=== PATIENT | female | born 1970 | race Native Hawaiian/Other Pacific Islander ===

== ENCOUNTER 2017-04-11 10:12 | Outpatient (CLI) | payer OTHER | END 2017-04-11 11:15 | disposition home or self-care (01) | LOC: MAMMO 10:12 | DX: Z12.31 Encounter for screening mammogram for malignant neoplasm of breast (principal) ==

== ENCOUNTER 2017-04-21 09:30 | Outpatient (CLI) | payer OTHER | END 2017-04-21 11:00 | disposition home or self-care (01) | LOC: US 09:30 | DX: R92.2 Inconclusive mammogram (principal) ==

== ENCOUNTER 2018-04-03 14:14 | Outpatient (CLI) | payer BC | END 2018-04-03 22:34 | disposition home or self-care (01) | LOC: RAD 14:14 | DX: M25.531 Pain in right wrist (principal) ==